=== PATIENT | male | born 1995 | race Caucasian/White ===

== ENCOUNTER 2024-12-29 11:32 | Outpatient (REF) | payer MEDICAID, SELFPAY ==
[2024-12-29 14:30] LABS: Alanine Aminotransferase 40 U/L (0-40); Albumin Level 4.5 g/dL (3.5-5.0); Alkaline Phosphatase 81 U/L (39-117); Aspartate Amino Transferase 40 U/L (5-37); Bilirubin Direct 0.2 mg/dL (0.0-0.5); Bilirubin Total 0.6 mg/dL (0.0-1.0); Cholesterol 170 mg/dL (<200); HDL Cholesterol 47 mg/dL (>40); LDL Cholesterol Calculated 107 mg/dL (<100); Total Protein 7.5 g/dL (6.5-8.0); Triglycerides 83 mg/dL (<150)
[2024-12-29 14:34] LABS: TSH reflex Free T4 1.33 uIU/mL (0.32-4.0); TSH reflex Free T4 1.34 uIU/mL (0.32-4.0)
[2024-12-30 06:37] LABS: CT PCR NOT DETECTED (Not Detect.); NG PCR NOT DETECTED (Not Detect.)
[2024-12-30 07:28] LABS: Triiodothyronine T3 Total 129 ng/dL (76-181)
== END 2024-12-29 11:33 | disposition home or self-care (01) ==
LOC: HO.HHCL 11:32
PROVIDERS: Student in an Organized Health Care Education/Training Program; Visit Provider Nurse Practitioner Family
DX: Z00.00 Encounter for general adult medical examination without abnormal findings (principal); E05.90 Thyrotoxicosis, unspecified without thyrotoxic crisis or storm
CPT/HCPCS: 36415; 80061; 80076; 84443; 84480; 87491; 87591